=== PATIENT | male | born 1995 | race Caucasian/White ===

== ENCOUNTER 2023-09-29 15:05 | Emergency (ER) | payer OTHER, SELFPAY ==
[2023-09-29 15:15] VITALS: BP 110/71; PULSE 81; RESP 16; TEMP 36.1; O2SAT 97; BMI 27.1
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
== END 2023-09-29 16:06 | disposition home or self-care (01) ==
PROVIDERS: Emergency Provider Student in an Organized Health Care Education/Training Program
DX: S13.4XXA Sprain of ligaments of cervical spine, initial encounter (principal); V43.52XA Car driver injured in collision with other type car in traffic accident, initial encounter
CPT/HCPCS: 99283

== ENCOUNTER 2024-06-25 10:52 | Emergency (ER) | payer OTHER, SELFPAY ==
[2024-06-25] VITALS (11 sets, daily range): BP systolic 99–116; BP diastolic 63–71; PULSE 87–130; RESP 18; TEMP 36.8; O2SAT 96–99; BMI 27.8
--- NOTE | 2024-06-25 12:16 | ED_ITS ---
HPI - Nausea/Vomiting/Diarrhea General Time Seen by Provider: 12:15 Date Seen: 06/25/24 Chief complaint: Nausea/Vomiting Stated complaint: sent from Urgent Care Time Seen by Provider: 06/25/24 12:15 Source: patient, RN notes reviewed and old records reviewed (Reviewed excellent note from urgent care) Mode of arrival: ambulatory Limitations: no limitations History of Present Illness HPI Narrative: This 28-year-old male was referred from urgent care for IV fluids in the setting of nausea vomiting and diarrhea after eating fast food. He ate [employer] yesterday, had onset of symptoms of that shortly after. No blood in the vomit or stools. He did get Zofran ODT at urgent care and has been able to start taking some sips of fluids, nausea is improving. He had his last diarrheal episode just prior to being seen in urgent care. Denies any abdominal pain, no fevers. There is no ill contacts. His note from urgent cares reviewed. They were unable to place an IV and thus sent him here. He was tachycardic, notes only 1 urine output in the last 10-12 hours ago. He had emesis or diarrhea every 30 minutes overnight. He states he is tired. Related Data Previous Rx's ?Medication ?Instructions ?Recorded ondansetron 4 mg disintegrating 4 - 8 mg (1 - 2 x 4 mg) PO Q6H PRN 06/25/24 tablet nausea and vomiting #20 tabs Allergies Allergy/AdvReac Type Severity Reaction Status Date / Time No Known Drug Allergies Allergy Verified 06/25/24 11:22 Review of Systems Narrative: Has per HPI and note from urgent care. Exam Const: Vital Signs, click to edit/add: Vital Signs - 24 hr 06/25/24 11:17 Temperature 98.3 F Pulse Rate [Pulse Oximeter] 130 H Respiratory Rate 18 Blood Pressure [Ri ght Upper Arm] 99/63 Pulse Oximetry 97 Oxygen Delivery Me thod Room Air Pleasant 28-year-old male is alert, interactive, no apparent distress but does look pale and seems tired. Sclera clear, no icterus. Symmetrical facial function, speech normal. Lungs are clear, good air entry, no wheezing crackles. CV fast but regular, no murmur, normal S1-S2, no S3-S4. Abdomen is soft, nontender, nondistended, no organomegaly. Skin looks pale but no rash noted. Documenting provider has reviewed patient's vital signs: yes Course Course ED Course: Patient does have improvement in his symptoms but given his tachycardia, do feel it would be beneficial to give him IV hydration, check basic labs to ensure no significant change with a CBC or electrolytes. Nausea has improved with the Zofran ODT from urgent care. Will order a L of IV saline. Do not feel he needs any imaging as his exam is benign. Will reconsider if there is anything concerning with his labs. Discussed this likely represents food-borne etiology. Reevaluation(s) Time of Reevaluation #1: 13:40 Reevaluation #1: Labs reviewed, no significant electrolyte abnormalities. Will order a 2nd L of IV fluids with lactated Ringer's. Time of Reevaluation #2: 13:56 Reevaluation #2: Reviewed reassuring labs with patient. He is getting his 2 L of fluids. Feels a little nausea, will give him a dose of IV Zofran. Discussed expectations for this illness, if it is a viral gastroenteritis, symptoms may linger. If it is food-borne, is usually shorter lived. Zofran was reportedly sent from Urgent Care, will have him pick that up. Time of Reevaluation #3: 14:52 Reevaluation #3: Patient is reported to be feeling much better. Once IV fluids are complete, will discharge to home. Vital Signs Vital signs: Initial Vital Signs Temperature 98.3 F 06/25/24 11:17 Temperature Source Temporal Artery Scan 06/25/24 11:17 Pulse Rate 130 H 06/25/24 11:17 Respiratory Rate 18 06/25/24 11:17 Blood Pressure 99/63 06/25/24 11:17 Blood Pressure Mean 75 06/25/24 11:17 Blood Pressure Position Semi-Fowlers 06/25/24 11:17 Pulse Oximetry 97 06/25/24 11:17 Oxygen Delivery Method Room Air 06/25/24 11:17 Vital Signs Temperature 98.3 F 06/25/24 11:17 Pulse Rate 130 H 06/25/24 11:17 Respiratory Rate 18 06/25/24 11:17 Blood Pressure 99/63 06/25/24 11:17 Pulse Oximetry 97 06/25/24 11:17 Oxygen Delivery Method Room Air 06/25/24 11:17 Temperature 98.3 F 06/25/24 11:17 Pulse Rate 130 H 06/25/24 11:17 Respiratory Rate 18 06/25/24 11:17 Blood Pressure 99/63 06/25/24 11:17 Pulse Oximetry 97 06/25/24 11:17 Oxygen Delivery Method Room Air 06/25/24 11:17 Medications Administered Medications: Discontinued Medications Generic Name Dose Route Start Last Admin Trade Name Freq PRN Reason Stop Dose Admin Sodium Chloride 1,000 mls @ 1,000 mls/hr 06/25/24 12:19 06/25/24 13:52 0.9 % Sodium Chloride 1000 Ml IV 06/25/24 13:18 Infused .Q1H VELASQUEZ Infusion Lactated Ringer's 1,000 mls @ 1,000 mls/hr 06/25/24 13:39 06/25/24 13:51 Lactated Ringers 1000 Ml IV 06/25/24 14:38 1,000 mls/hr .Q1H ONE Administration Ondansetron HCl 4 mg 06/25/24 13:55 06/25/24 13:59 Ondansetron 2 Mg/Ml Inj IVP 06/25/24 13:56 4 mg ONCE ONE Administration MDM - Nausea/Vomiting/Diarrhea Lab Data Attestation: I reviewed the patient's lab results. Labs: Lab Results 06/25/24 Range/Units 13:09 WBC 7.86 (4.50-11.00) K/uL RBC 5.86 (4.30-5.90) m/uL Hgb 18.0 H (13.5-17.5) gm/dL Hct 51.5 (37.0-53.0) % MCV 88 (80-100) fL MCH 31 (26-34) pg MCHC 35 (32-36) gm/dL RDW Coeff of Kain 11.8 (11.5-15.5) % Plt Count 178 (140-440) K/uL Neut % (Auto) 91.4 H (42.0-72.0) % Lymph % (Auto) 2.4 L (20-44) % [place] % (Auto) 6.1 (0.0-11.0) % Eos % (Auto) 0.0 (0.0-7.0) % Baso % (Auto) 0.1 (0.0-3.0) % Neut # (Auto) 7.20 H (1.7-7.0) K/uL Lymph # (Auto) 0.20 L (0.90-2.90) K/uL [place] # (Auto) 0.50 (0.00-0.90) K/UL Eos # (Auto) 0.00 (0.00-0.50) K/uL Baso # (Auto) 0.01 (0.00-0.30) K/uL Abs Immat Gran (auto) 0.00 (0.00-0.30) K/uL Imm/Tot Granulo (auto) 0.0 % Sodium 138 (135-149) mmol/L Potassium 4.5 (3.6-5.1) mmol/L Chloride 104 (96-114) mmol/L Carbon Dioxide 23 (20-32) mmol/L Anion Gap 11 (7-15) mEq/L BUN 22 (5-24) mg/dL Creatinine 1.0 (0.5-1.5) mg/dL Estimated Creat Clear 118.56 Estimated GFR 104 ml/min Glucose 130 H (60-115) mg/dL Calcium 9.3 (8.4-10.6) mg/dL Discharge Plan Discharge Clinical Impression: Nausea, vomiting, and diarrhea Patient Disposition: Home, Self-Care Condition: Stable Instructions: Acute Nausea and Vomiting (ED), Acute Diarrhea (ED), Nutrition Tips for Relief of Diarrhea (ED) Additional Instructions: Can use Zofran as prescribed by Urgent Care, do recommend picking this up. Use the Zofran to control the nausea so that you can take frequent small sips fluids to stay hydrated. As you feel better, can increase her diet back to regular. Sometimes diarrhea will linger longer, can follow the handout for nutrition tips if this is the case. If you develop fevers, develops abdominal pain, have blood y diarrhea, do recommend re-evaluation. Activity Level: Activity as Tolerated Prescriptions: No Action sodium chloride 0.9 % Parenteral Solution 1 ea IV ONCE Qty: 1000 0RF ondansetron 4 mg tablet,disintegrating 4 - 8 mg PO Q6H PRN (Reason: nausea and vomiting) Qty: 20 0RF Follow Up/Referrals: Provider,Not a Local [Primary Care Provider] - Stand Alone Forms: Content [employer] Info Instructions
[2024-06-25] MEDS: 0.9 % SODIUM CHLORIDE 1000 ml 1,000 ML IV (12:50)
[2024-06-25 13:17] LABS: Basophils Absolute Auto 0.01 K/uL (0.00-0.30); Basophils Percent Auto 0.1 % (0.0-3.0); Hematocrit 51.5 % (37.0-53.0); Lymphocytes Percent Auto 2.4 % (20-44); Mean Corpuscular HGB Conc 35 gm/dL (32-36); Mean Corpuscular Hemoglobin 31 pg (26-34); Mean Corpuscular Volume 88 fL (80-100); Monocytes Percent Auto 6.1 % (0.0-11.0); Neutrophils Percent Auto 91.4 % (42.0-72.0); Platelet Count* 178 K/uL (140-440); RDW Coefficient of Variation % 11.8 % (11.5-15.5); Red Blood Count 5.86 m/uL (4.30-5.90); White Blood Count* 7.86 K/uL (4.50-11.00)
[2024-06-25 13:18] LABS: Slide Review Reflex No
--- OUTSIDE RECORDS SUMMARY | 2024-06-25 13:22 | XMS_ITS | Continuity of Care Document ---
Author Name [facility] Organization [facility] Care Team Providers Care Potato Bucker Name Role Phone [facility] Unavailable Unavailable Problems Combined list of problems from Department of Defense and Veterans Affairs facilities. It does not include entries that were removed or entered in error. Problem Status Onset Date Problem Type Date of Resolution Comments Source Other injury of other muscle(s) and tendon(s) at lower leg level, right leg Active 8 Condition DoD Other injury of other muscle(s) and tendon(s) at lower leg level, left leg Active 8 Condition DoD Viral conjunctivitis, unspecified Active 7 Condition DoD Back pain Active Condition NATIVE [facility] C Nicotine dependence Active Condition [facility] Tobacco user1 Active Condition Proble m added based off tobacco use documented in social history Ambulatory Pharmacy Medications Combined list of outpatient medications from Department of Defense and Veterans Affairs facilities.Medications provided include 1) outpatient medications from the last 15 months, and 2) patient-reported medications. Medication Details Route Status Patient Instructions Prescription Expires Prescription Number Last Dispense Date Ordering Provider Order Date Order Qty Source benzocaine- menthol 15 mg-3.6 mg lozenge [18EA] See Rx Instruct ions, # 18 EA, 0 total refill(s ), Hard Stop Complet ed 11/25/2021 18.0 Ambulat ory Pharmac y loratadine 10 mg tablet See Rx Instruct ions, Oral, # 30 EA, 0 total refill(s ), Hard Stop Oral (given by mouth) Complet ed 11/25/2021 30.0 Ambulat ory Pharmac y meloxicam 15 mg oral tablet meloxica m 15 mg oral tablet Start Date: 07/08/20 Status: Ordered Ordered No Facilit y Access Mucinex ER 600 mg/12 hour tablet See Rx Instruct ions, Oral, # 20 EA, 0 total refill(s ), Hard Stop Oral (given by mouth) Complet ed 11/25/2021 20.0 Ambulat ory Pharmac y Allergies, Adverse Reactions, Alerts Combined list of allergies from Department of Defense and Veterans Affairs facilities. It does not include entries that were removed or entered in error. Substance Category Reaction Severity Reaction type Status Date Reported Comments Source No Known Allergies Drug allergy (disorder) active 11/11/2017 [facility] Immunizations Combined list of available immunizations from the Department of Defense and Veterans Affairs facilities. Immunization Series Date Given Administered By Site Reaction Lot Number CVX Code Drug Street Light Lamp Cleaner Status Comments Source INFLUENZA, INJECTABLE, QUADRIVALENT, PRESERVATIVE FREE 2021 150 complet ed [facility] PNEUMOCOCCAL POLYSACCHARID E PPV23 2020 33 complet ed [place] [facility] COVID Vaccine Pfizer 2020 RICAELYNINOBL A Right Delto id [id number] PFIZER complet ed COVID Vaccine Pfizer 04/22/21 Given 0024C-N aval [facility] Pendlet on COVID-19 (PFIZER), MRNA, LNP-S, PF, 30 MCG/0.3 ML DOSE 2 2020 208 complet ed [facility] COVID-19 (PFIZER), MRNA, LNP-S, PF, 30 MCG/0.3 ML DOSE 1 2020 208 complet ed [facility] influenza virus vaccine, inactivated 2019 BECKA Left Delto id [id number] 158 WillCall, A iMapData complet ed influenza virus vaccine, inactivat ed 08/25/20 Given 0210C-N [facility] 31 [facility] influenza, injectable, quadrivalent- pf 2018 [id number] 150 Seqirus complet ed influenza , injectabl e, quadrival ent-pf 09/05/19 Given Ambulat ory Pharmac y influenza, injectable, quadrivalent- pf 2018 [id number] 150 Seqirus complet ed influenza , injectabl e, quadrival ent-pf 09/05/19 Given Ambulat ory Pharmac y Influenza, injectable, quadrivalent, preservative free 0 2018 [id number] 988 150 Seqirus (SEQ) complet ed Influenza , injectabl e, quadrival ent, preservat tariq free [facility] influenza, injectable, quadrivalent- pf 2017 UNK 150 Seqirus complet ed influenza , injectabl e, quadrival ent-pf 08/03/18 Given Ambulat ory Pharmac y influenza, injectable, quadrivalent- pf 2017 UNK 150 Seqirus complet ed influenza , injectabl e, quadrival ent-pf 08/03/18 Given Ambulat ory Pharmac y Influenza, injectable, quadrivalent, preservative free 0 2017 UNK 150 Seqirus (SEQ) comple t ed Influenza , injectabl e, quadrival ent, preservat tariq free DoD hepatitis A-hepatitis B vaccine 2017 [id number] 104 GlaxoSmithKli ne complet ed hepatitis A-hepatit is B vaccine 12/29/17 Given Ambulat ory Pharmac y hepatitis A-hepatitis B vaccine 2017 [id number] 104 GlaxoSmithKli ne complet ed hepatitis A-hepatit is B vaccine 12/29/17 Given Ambulat ory Pharmac y HEP A-HEP B 2017 104 complet ed [facility] hepatitis A and hepatitis B vaccine 3 2017 [id number] 104 [facility] (B) complet ed hepatitis A and hepatitis B vaccine DoD varicella virus vaccine 2016 [id number] Merck & Company Inc complet ed varicella virus vaccine 09/06/17 Given Ambulat ory Pharmac y varicella virus vaccine 2016 [id number] 21 [employer]ck [employer] Company Inc complet ed varicella virus vaccine 09/06/17 Given Ambulat ory Pharmac y VARICELLA [address] [facility] varicella virus vaccine 2 2016 [id number] 21 Merck (MSD) complet ed varicella virus vaccine DoD Influenza, inj, MDCK, quadrivalent- pf 2016231 171 Seqirus complet ed Influenza , inj, MDCK, quadrival ent-pf 07/20/17 Given Ambulat ory Pharmac y Influenza, inj, MDCK, quadrivalent- pf 2016231 171 Seqirus complet ed Influenza , inj, MDCK, quadrival ent-pf 07/20/17 Given Ambulat ory Pharmac y Influenza, injectable, Madin [place] Canine Kidney, preservative free, quadrivalent 0 2016231 171 Seqirus (SEQ) comple t ed Influenza , injectabl e, Madin Viktoriya Canine Kidney, preservat tariq free, quadrival ent DoD varicella virus vaccine 2016 [id number] 21 Merck & Company Inc complet ed varicella virus vaccine 07/15/17 Given Ambulat ory Pharmac y poliovirus vaccine, inactivated 2016 [id number] sanofi pasteur complet ed polioviru s vaccine, inactivat ed 07/15/17 Given Ambulat ory Pharmac y hepatitis A-hepatitis B vaccine 2016 [id number] 104 GlaxoSmithKli ne complet ed hepatitis A-hepatit is B vaccine 07/15/17 Given Ambulat ory Pharmac y varicella virus vaccine 2016 Left Arm [id number] 21 Merck & Company Inc complet ed varicella virus vaccine 07/15/17 Given Ambulat ory Pharmac y poliovirus vaccine, inactivated 2016 Right Arm [id number] 10 sanofi pasteur complet ed polioviru s vaccine, inactivat ed 07/15/17 Given Ambulat ory Pharmac y hepatitis A-hepatitis B vaccine 2016 Left Arm [id number] 104 GlaxoSmithKli ne complet ed hepatitis A-hepatit is B vaccine 07/15/17 Given Ambulat ory Pharmac y POLIO, UNSPECIFIED FORMULATION 2016 89 complet ed [facility] poliovirus vaccine, inactivated 1 2016 [place] [id number] 10 Sanofi Pasteur (PMC) complet ed polioviru s vaccine, inactivat ed DoD varicella virus vaccine 1 2016 [place] [id number] 21 Merck (MSD) complet ed varicella virus vaccine DoD hepatitis A and hepatitis B vaccine 1 2016 [place] L [id number] 104 SmithKline (SKB) complet ed hepatitis A and hepatitis B vaccine DoD MMR 2016 03 complet ed [facility] [facility] measles and rubella virus vaccine 0 2016 04 () Not Given measles and rubella virus vaccine DoD varicella virus vaccine 0 2016 21 () Not Given varicella virus vaccine DoD adenovirus vaccine, live 2016 [id number] 5 143 Teva Pharmaceutica ls complet ed adenoviru s vaccine, live 06/15/17 Given Ambulat ory Pharmac y hepatitis A-hepatitis B vaccine 2016 [id number] 104 GlaxoSmithKli ne complet ed hepatitis A-hepatit is B vaccine 06/15/17 Given Ambulat ory Pharmac y meningococcal A,C,Y,W-135 (MCV4P) 2016 [id number] 114 Novartis Pharmaceutica ls complet ed meningoco ccal A,C,Y,W-1 35 (MCV4P) 06/15/17 Given Ambulat ory Pharmac y tetanus, diphtheria, acellular pertu is 2016 [id number] 115 sanofi pasteur complet ed tetanus, diphtheri a, acellular pertussis 06/15/17 Given Ambulat ory Pharmac y pneumococcal polysaccharid e, 23 valent 2016 [id number] 33 Merck & Company Inc complet ed pneumococ marybeth polysacch aride, 23 valent 06/15/17 Given Ambulat ory Pharmac y meningococcal A,C,Y,W-135 (MCV4P) 2016 Left Arm [id number] 114 Novartis Pharmaceutica ls complet ed meningoco ccal A,C,Y,W-1 35 (MCV4P) 06/15/17 Given Ambulat ory Pharmac y adenovirus vaccine, live 2016 [id number] 5 143 Teva Pharmaceutica ls complet ed adenoviru s vaccine, live 06/15/17 Given Ambulat ory Pharmac y hepatitis A-hepatitis B vaccine 2016 Left Arm [id number] 104 [facility] hepatitis A-hepatit is B vaccine 06/15/17 Given Ambulat ory Pharmac y tuberculin purified protein derivative 2016 Left Arm [id number] 96 Unknown complet ed tuberculi n purified protein derivativ e 06/15/17 Given Ambulat ory Pharmac y pneumococcal polysaccharid e, 23 valent 2016 Right Arm [id number] 33 Merck & Company Inc complet ed pneumococ marybeth polysacch aride, 23 valent 06/15/17 Given Ambulat ory Pharmac y tetanus, diphtheria, acellular pertu is 2016 Right Arm [id number] 115 sanofi pasteur complet ed tetanus, diphtheri a, acellular pertussis 06/15/17 Given Ambulat ory Pharmac y TDAP 2016 115 complet ed [facility] [place] [facility] pneumococcal polysaccharid e vaccine, 23 valent 1 2016 ELIAS SAMANIEGO [id number] 33 Merck (MSD) complet ed pneumococ marybeth polysacch aride vaccine, 23 valent DoD tuberculin skin test; purified protein derivative solution, intradermal 1 2016 ELIAS SAMANIEGO [id number] 96 Unknown (UNK) complet ed tuberculi n skin test; purified protein derivativ e solution, intraderm al DoD hepatitis A and hepatitis B vaccine 1 2016 ELIAS SAMANIEGO [id number] [facility] XYDO (SKB) complet ed hepatitis A and hepatitis B vaccine DoD meningococcal polysaccharid e (groups A, C, Y and W-135) diphtheria toxoid conjugate vaccine (MCV4P) 1 2016 ELIAS SAMANIEGO [id number] 114 [employer]. (NOV) complet ed meningoco ccal polysacch aride (groups A, C, Y and W-135) diphtheri a toxoid conjugate vaccine (MCV4P) DoD tetanus toxoid, reduced diphtheria toxoid, and acellular pertu is vaccine, adsorbed 1 2016 ELIAS SAMANIEGO [id number] 115 Sanofi Pasteur (PMC) complet ed tetanus toxoid, reduced diphtheri a toxoid, and acellular pertussis vaccine, adsorbed DoD Adenovirus, type 4 and type 7, live, oral 1 2016 ELIAS SAMANIEGO [id number] 143 [employer] (BRR) complet ed Adenoviru s, type 4 and type 7, live, oral DoD Results Combined list of recent chemistry, hematology and other laboratory results from Department of Defense and Veterans Affairs, ranging from 15 months to all on record, depending upon the facility. Order Name Results Value Reference Range Date Interpretation Specimen Comments Source Hematolo gy Neutrophil % Auto 56.7 % 40.0 - 80.0 03/13 N [facility] Hematolo gy Lymphocyte % Auto 33.6 % 15.0 - 45.0 03/13 N [facility] Hematolo gy Monocyte % Auto 7.8 % 4.0 - 11.0 03/13 N [facility] Hematolo gy Eosinophil % Auto 1.5 % 0.0 - 6.0 03/13 N [facility] Hematolo gy Basophil % Auto 0.4 % 0.0 - 2.0 03/13 N [facility] Hematolo gy Neutro Absolute 2.1 1.4 - 6.5 03/13 N [facility] Hematolo gy Lymph Absolute 1.2 1.0 - 3.4 03/13 N [facility] Hematolo gy [place] Absolute 0.3 0.2 - 0.9 03/13 N [facility] Hematolo gy Eos Absolute 0.1 0.0 - 0.5 03/13 N [facility] Hematolo gy Baso Absolute 0.0 0.0 - 0.2 03/13 N [facility] Hematolo gy nRBC % Auto Not Performe d (03/13/21 8:18 AM) 03/13 N [facility] Hematolo gy nRBC Absolute Not Performe d (03/13/21 8:18 AM) 03/13 N [facility] Hematolo gy WBC 3.7 10^3/uL 4.5 - 11.0103 03/13 L [facility] Hematolo gy RBC 5.46 10^6/uL 4.40 - 5.87574 03/13 N [facility] Hematolo gy Hemoglobin 17.3 g/dL 13.0 - 18.0 03/13 N [facility] Hematolo gy Hematocrit 49.6 % 40.0 - 50.0 03/13 N [facility] Hematolo gy MCV 90.9 fL 80.0 - 100.0 03/13 N [facility] Hematolo gy MCH 31.7 pg 26.0 - 34.0 03/13 N [facility] Hematolo gy MCHC 34.9 g/dL 32.0 - 36.0 03/13 N [facility] Hematolo gy RDW 12.5 % 11.5 - 14.5 03/13 N [facility] Hematolo gy Platelets 203 10^3/uL 150 - [id number] 03/13 N [facility] Hematolo gy MPV 8.9 fL 6.5 - 10.0 03/13 N [facility] Chemistr y Non-HDL Cholestero l 104 mg/dL 03/13 Interpretiv e Data: ADULT PEDIATRIC DESIRABLE: <160 <120 mg/dL BORDERLINE: 160-189 120-144 mg/dL HIGH: >189 >144 mg/dL Reference: (1) Adult Treatment Panel III (ATP III) Classificat ion by the National Cholesterol Education Program (NCEP) and (2) Expert Panel on Integrated guidelines for Cardiovascu lar Health and Risk Reduction in Children and Adolescents , 2002. [facility] Chemistr y Cholestero l Total 154 mg/dL 03/13 Interpretiv e Data: ADULT PEDIATRIC DESIRABLE: <200 <170 mg/dL BORDERLINE: 200-239 170-199 mg/dL HIGH: >239 >199 mg/dL [facility] Chemistr y HDL Cholestero l 50.00 mg/dL 03/13 L [facility] Chemistr y Chol/HDL 3 mg/dL 03/13 [facility] Chemistr y LDL 88.00 mg/dL 03/13 Interpretiv e Data: 2YRS - 18YRS DESIRABLE: <110 2YRS - 18YRS BORDERLINE- HIGH: 110-129 2YRS - 18YRS HIGH: >130 ADULT DESIRABLE: 65-130 ADULT BORDERLINE- HIGH: 130-159 ADULT HIGH: >160 LDL CALCULATION INVALID IF TRIGLYCERID ES> 400 MG/DL [facility] Chemistr y LDL/HDL 2 03/13 [facility] Chemistr y Triglyceri thomas 80.00 mg/dL 03/13 N Interpretiv e Data: ADLT PEDS (0-9) (10-19) Desirable: <150 <75 <90 Borderline: 150-199 75-99 90-129 High: >199 >99 >129 [facility] Chemistr y LDL Direct 95.00 mg/dL 03/13 Interpretiv e Data: ADULT PEDIATRIC Desirable: <130 < 110 mg/dL Borderline: 130-159 110-129 mg/dL High: >159 >129 mg/dL [facility] Chemistr y VLDL 16.00 mg/dL 03/13 Interpretiv e Data: VLDL calculation invalid if Triglycerid es =/>400 mg/dL. [facility] Chemistr y HDL/Chol 0 03/13 [facility] Chemistr y Glucose Fasting 85 mg/dL 75 - 100 03/13 N [facility] Infectio us Disease HIV-1/2 AG/AB 4G CDD LC NEGATIVE 03/13 Result Comment: Performed At: [facility] [id number] [facility] [address] [place] [address] SAVANNAH MORTON PHD Ph:[phone] [facility] Infectio us Disease Source of Test.LC Gen Force Test (03/13/21 8:18 AM) 03/13 N [facility] Infectio us Disease Reason for Test? Screenin g (11/25/20 11:10 AM) 11/25 N [facility] Infectio us Disease SARS-CoV-2 PCR Negative 7 (11/25/20 11:10 AM) 11/25 N Interpretiv e Data: SARS-CoV-2 POSITIVE: The 2019 novel coronavirus (SARS-CoV-2 ) target nucleic acids are detected. The SARS-CoV-2 signal for the N2 nucleic acid target or signals for both nucleic acid targets (N2 and E) have a Ct within the valid range and endpoint above the minimum setting. SARS-CoV-2 PRESUMPTIVE POS: The 2019 novel coronavirus (SARS-CoV-2 ) nucleic acids may be present. Sample should be retested according to the Retest Procedure in Section 17.2. For samples with a repeated presumptive positive result, additional confirmator y testing may be conducted, if it is necessary to differentia te between SARS-CoV-2 and SARS-CoV-1 or other Sarbecoviru s currently unknown to infect humans, for epidemiolog ical purposes or clinical management. The SARS-CoV-2 signal for only the E nucleic acid target has a Ct within the valid range and endpoint above the minimum setting SARS-CoV-2 NEGATIVE:Th e 2019 novel coronavirus (SARS-CoV-2 ) target nucleic acids are not detected. The SARS-CoV-2 signals for two nucleic acid targets (N2 and E) do not have a Ct within the valid range and endpoint above the minimum setting +EUA comment The laboratory is certified under the Clinical Laboratory Improvement Program (CLIP) and College of [employer] s (CAP) as qualified to perform high complexity clinical laboratory testing.The se results were generated using the CDC 2019-Novel Coronavirus (2019-nCoV) Real-time RT-PCR Diagnostic Panel. This assay is intended for the in vitroqualit ative detection of the SARS-CoV-2 (COVID-19) RNA in respiratory specimens from individuals meeting SARS-CoV-2 (COVID-19) clinical and/or epidemiolog ical criteria. Identificat ion of SARS-CoV-2 (COVID-19) is considered final. Negative results do not preclude SARS-CoV-2 (COVID-19) infection and should not be used as the sole basis for treatment or other patient management decisions. The CDC 2019-Novel Coronavirus (2019-nCoV) Real-time RT-PCR Diagnostic Panel + is only for use under the Food and Drug Administrat ion's Emergency Use Authorizati on. [facility] Vital Signs Combined list of inpatient and outpatient Vital Signs from Department of Defense and Veterans Affairs, ranging from 12 months to all on record, depending upon the facility. Vital Sign Value Date Comments Source Systolic Blood Pressure 121mm[Hg] 01/08/2021 19:05:00 Ambulatory Pharmacy Diastolic Blood Pressure 77mmol 01/08/2021 19:05:00 Ambulatory Pharmacy Mean Arterial Pressure, Calc 92mm[Hg] 01/08/2021 19:05:00 Ambulatory P harmacy Peripheral Pulse Rate 70bpm 01/08/2021 19:05:00 Ambulatory Pharmacy Respiratory Rate 18br/min 01/08/2021 19:05:00 Ambulatory Pharmacy Temperature Oral 36.5Cel 01/08/2021 19:05:00 Ambulatory Pharmacy Encounters Combined list of: 1) Encounters from Department of Veterans Affairs facilities going back up to thelast 18 months. 2) Encounters from the Department of Defense facilities going back up to 280 months. Location Location Details Encounter Type Encounter Number Reason For Visit Attending Provider ADM Date DC Date Status Disposition Source [facility]) OUTPATIENT [id number] Notes Entered by: SHANE ALEJANDRE 15 Jun 2017 1220 ------- ------- ------- ------- -- ALBERTO RAMIREZ 06/15 Released w/o Limitations [facility] HC [facility] ) [facility] D Recruit [place] martinez) OUTPATIENT [id number] Notes Entered by: SHERICE SARKAR 15 Jun 2017 1445 ------- ------- ------- ------- -- TASHA WOODS 06/15 Released w/o Limitations [facility](M CRD Recruit Process ing) [facility](MCR D Recruit Processin g) OUTPATIENT [id number] T-22 VACCINE S JORDIN BELLAMY Koki 07/19 Released w/o Limitations [facility](M CRD Recruit Process ing) [facility](MCR D Recruit Sick Call) OUTPATIENT [id number] eye irritat ion ABILIO(IDC) JUAN Koki 08/26 Released w/o Limitations [facility](M CRD Recruit Sick Call) [facility](MCR D Recruit Sick Call) OUTPATIENT [id number] RIGHT EYE IRRITAT ION MARY FORTE Dez 08/26 Released w/o Limitations [facility](M CRD Recruit Sick Call) [facility](31A BC IDC FP [facility]) OUTPATIENT [id number] TEE Tian 09/07 Released w/o Limitations [facility](3 1ABC IDC [facility]) [facility](MCR D Recruit Processin g) OUTPATIENT [id number] Notes Entered by: KOLBY HATFIELD 19 Sep 2017 0934 ------- ------- ------- ------- -- MAKE UP SHOTS KOLBY HATFIELD 09/19 Released w/o Limitations [facility](M CRD Recruit Process ing) [facility](Bl dg 4-Nirmala s) OUTPATIENT [id number] tob/sex health JOSEE HUERTA 11/30 Released w/o Limitations [facility]( Bldg 4-Vivian ess) [facility] OUTPATIENT [id number] BILAT FARAZ SUH 12/08 Released w/o Limitations [facility]( Med-) [facility](31 ABC FP MHP) OUTPATIENT [id number] immuniz RAVI Subramanian 12/27 Released w/o Limitations [facility](3 1 ABC FP MHP) [facility](31 ABC FP MHP) OUTPATIENT [id number] poss sinus infecti on AKUETTEH-S AFORO, DARIO T 01/11 Released w/o Limitations [facility](3 1 ABC FP MHP) [facility](31 ABC FP MHP) OUTPATIENT [id number] RIB PAIN RODRIGO CORRAL A 01/17 Released w/o Limitations [facility](3 1 ABC FP MHP) [facility](31 ABC FP MHP) OUTPATIENT [id number] FLU SHOT AMBREEN ORTIZ 08/23 Released w/o Limitations [facility](3 1 ABC FP MHP) [facility](31 ABC FP MHP) OUTPATIENT [id number] food poisoni PHILIPP Arreguin 08/30 Released w/o Limitations [facility](3 1 ABC FP MHP) [facility](31 ABC Hearing Conservat ion) OUTPATIENT [id number] audiogr am PARAMJIT XIAO 12/06 Released w/o Limitations [facility](3 1 ABC Hearing Conserv ation) [facility](31 ABC FP MHP) OUTPATIENT [id number] SHIRLEY GRIFFITH 12/08 Released w/o Limitations [facility](3 1 ABC FP MHP) [facility](31 ABC FP MHP) OUTPATIENT [id number] poss sinus inf AKUETTEH-S AFORO, DARIO T 01/09 Released w/o Limitations [facility](3 1 ABC FP MHP) [facility](31 ABC FP MHP) OUTPATIENT [id number] 1 sinus infecti on x2 months AKUETTEH-S AFORO, ADRIO T 02/05 Released w/o Limitations [facility](3 1 ABC FP MHP) [facility](31 ABC FP MHP) OUTPATIENT [id number] 8 fell on outstre ched right hand-pa in,slig ht swellin g x 1 week AKUETTEH-S AFORO, DARIO T 04/03 Released w/o Limitations [facility](3 1 ABC FP MHP) [facility](31 ABC FP MHP) OUTPATIENT [id number] 6 ongoing bilat cabrera splints DARIO BYRD T 07/07 Released w/o Limitations [facility](3 1 ABC FP MHP) [facility](CP Comm Imms/Flu Clinic) TELE CONSULT [id number] Notes Entered by: DARIO RODRIGUES 14 Jul 2020 1502 ------- ------- ------- ------- -- Normal limited Bone Scan Result BETO SANTIZO Prince 07/14 Other Not Elsewhere Classified [facility](C P Comm Imms/Fl u Clinic) [facility](31 ABC FP MHP) OUTPATIENT [id number] 5 VIRTUAL -LIGHT DUTY CHIT DARIO BYRD 07/23 Released w/o Limitations [facility](3 1 ABC FP MHP) [facility] Outpatient Encounter [id number] 01/21 ADARSHSHAQUILLE JOHANNAMELISSA [facility] Procedures Combined list of: 1) Procedures from Department of Veterans Affairs facilities going back up to thelast 18 months, not all [place] non-surgical procedures are included; 2) All procedures from the Department of Defense facilities. Procedure Procedure Type Code Date Perfomer Comments Sourc e Patient education, not otherwise cla ified, non-physician provider, group, per se ion 12/06/19 19 PARAMJIT XIAO Threshold Audiogram (Pure Tone) Automated Threshold Audiogram (Pure Tone) Automated [id number] 12/06/19 19 PARAMJIT XIAO [facility] Influenza Split Virus Vaccine IM With Preservative Quadrivalent 0.50mL Dosage Influenza Split Virus Vaccine IM With Preservative Quadrivalent 0.50mL Dosage 30986 08/23/20 18 AMBREEN ORTIZ [facility] Pulse Oximetry Pulse Oximetry 93208 01/12/20 18 DARIO BLANDON [facility] Hepatitis A And Hepatitis B (Intramuscular Use) Adult Dosage Hepatitis A And Hepatitis B (Intramuscular Use) Adult Dosage 48354 12/28/19 18 RAVI PHELPS [facility] Immunization Administration By Injection, One Vaccine Immunization Administration By Injection, One Vaccine 38562 12/28/19 18 PHELPS CINDY DoD Phys Therapy Education Self Care Training - Per 15 Minutes Phys Therapy Education Self Care Training - Per 15 Minutes 05558 12/10/19 18 FARAZ BAIG Athletic Training Evaluation Moderate Complexity Athletic Training Evaluation Moderate Complexity 73946 12/10/19 18 FARAZ BAIG Hepatitis A And Hepatitis B (Intramuscular Use) Adult Dosage Hepatitis A And Hepatitis B (Intramuscular Use) Adult Dosage 12358 09/19/20 17 KOLBY HATFIELD Immunization Administration By Injection, One Vaccine Immunization Administration By Injection, One Vaccine 82790 09/19/20 17 KOLBY HATFIELD Hepatitis A And Hepatitis B (Intramuscular Use) Adult Dosage Hepatitis A And Hepatitis B (Intramuscular Use) Adult Dosage 56156 07/19/20 17 JORDIN BELLAMY Vaccines Viral Polio, Inactivated Vaccines Viral Polio, Inactivated 54932 07/19/20 17 JORDIN BELLAMY Physician Supervised Injection Intramuscular Antibiotic Physician Supervised Injection Intramuscular Antibiotic 77703 07/19/20 17 JORDIN BELLAMY Immunization Administration By Injection, Each Additional Vaccine Immunization Administration By Injection, Each Additional Vaccine 33712 07/19/20 17 JORDIN BELLAMY Preventive Medicine Screening Using Standardized Depre ion A e ment Tool Preventive Medicine Screening Using Standardized Depression Assessment Tool 1220F 06/16/20 17 GEORGETTE BARNETT Physician Supervised Injection Intramuscular Antibiotic Physician Supervised Injection Intramuscular Antibiotic [id number] 06/16/20 17 GEORGETTE BARNETT Vaccines Adenovirus Type 7 Live, For Oral Use Vaccines Adenovirus Type 7 Live, For Oral Use [id number] 06/16/20 17 GEORGETTE BARNETT Physician Supervised Injection Intramuscular Physician Supervised Injection Intramuscular [id number] 06/16/20 17 GEORGETTE BARNETT [facility] Venipuncture Venipuncture 50872 06/16/20 17 GEORGETTE BARNETT [facility] Collection Of Capillary Blood Specimen Collection Of Capillary Blood Specimen [id number] 06/16/20 17 GEORGETTE BARNETT Immunization Administration By Injection, One Vaccine Immunization Administration By Injection, One Vaccine 17346 06/16/20 17 GEORGETTE BARNETT Skin Test Anergy Tuberculin Intradermal Skin Test Anergy Tuberculin Intradermal 54245 06/16/20 17 ELAYNE BARNETTOND [facility] Pneumococcal Polysaccharide Vaccine 23 Valent Intramuscular Pneumococcal Polysaccharide Vaccine 23 Valent Intramuscular 03358 06/16/20 17 [facility] Meningococcal Polysaccharide Vaccine Meningococcal Polysaccharide Vaccine 29138 06/16/20 17 [facility] Tdap Vaccine Seven Years Of Age And Above Tdap Vaccine Seven Years Of Age And Above 04178 06/16/20 17 [facility] Hepatitis A And Hepatitis B (Intramuscular Use) Adult Dosage Hepatitis A And Hepatitis B (Intramuscular Use) Adult Dosage 88103 06/16/20 17 [facility] Vaccines Adenovirus Type 4 Live, For Oral Use Vaccines Adenovirus Type 4 Live, For Oral Use 78559 06/16/20 17 [facility] Immunization Administration By Injection, Each Additional Vaccine Immunization Administration By Injection, Each Additional Vaccine 88376 06/16/20 17 [facility] Patient education, not otherwise cla ified, non-physician provider, group, per se ion 06/15/20 17 ALBERTO ALEJANDRE [facility] Audiometry Group Testing Audiometry Group Testing [id number] 06/15/20 17 ALBERTO ALEJANDRE [facility] Waiver services; not otherwise specified (NOS) DARIO BLANDON [facility] SELF-CARE/HOME MANAGMENT TRAIN (EG,ACT OF DAILY LIVING (ADL) &COMPENSAT TRAIN,MEAL PREPARATION,SAFETY PROCS,AND INSTRUCT IN USE OF ASST TECHNOLOGY DEV/ADPT EQUIP) DIR ONE-ON-ONE CONT,EA 15 MINUTES 12/09/19 [facility] WAIVER SERVICES; NOT OTHERWISE SPECIFIED (NOS) 07/23/20 [facility] ADMINISTRATION OF PATIENT-FOCUSED HEALTH RISK ASSESSMENT INSTRUMENT (EG, HEALTH HAZARD APPRAISAL) WITH SCORING AND DOCUMENTATION, PER STANDARDIZED INSTRUMENT 12/09/19 19 [facility] PATIENT EDUCATION, NOT OTHERWISE CLASSIFIED, NON-PHYSICIAN PROVIDER, GROUP, PER SESSION 12/06/19 19 [facility] INFLUENZA VIRUS VACCINE, QUADRIVALENT (IIV4), SPLIT VIRUS, 0.5 ML DOSAGE, FOR INTRAMUSCULAR USE 08/23/20 18 [facility] NONINVASIVE EAR OR PULSE OXIMETRY FOR OXYGEN SATURATION; SINGLE DETERMINATION 01/12/20 18 [facility] HEPATITIS A AND HEPATITIS B VACCINE (HEPA-HEPB), ADULT DOSAGE, FOR INTRAMUSCULAR USE 12/28/19 18 [facility] IMMUNIZATION ADMINISTRATION (INCLUDES PERCUTANEOUS, INTRADERMAL, SUBCUTANEOUS, OR INTRAMUSCULAR INJECTIONS); 1 VACCINE (SINGLE OR COMBINATION VACCINE/TOXOID) 09/19/20 17 [facility] IMMUNIZATION ADMINISTRATION (INCLUDES PERCUTANEOUS, INTRADERMAL, SUBCUTANEOUS, OR INTRAMUSCULAR INJECTIONS); EACH ADDITIONAL VACCINE (SINGLE OR COMBINATION VACCINE/TOXOID) 07/15/20 17 [facility] PATIENT SCREENED FOR DEPRESSION (BEN) 06/15/20 17 [facility] AUDIOMETRIC TESTING OF GROUPS 06/15/20 17 [facility] No data available for this section Ambulato ry Pharmacy Social History Combined list of available smoking, tobacco, and other social history from [facility] facilities. Social History Type Response Date Comment Sourc e Tobacco smoking status NHIS VA-TOBACCO NEVER USED 12/15/2021 [facility] DODD Smoking Status 5-9 cigs(between 1/4 to 1/2 pack)/day in last 30 days 01/08/2021 Ambulatory Pharmacy Male 07/11/2020 Ambulatory Pha rmacy This section is an empty social history section. [facility]D Sexual Orientation Ambula tory Pharmacy Gender identity Ambulator y Pharmacy Assessment and Plan Combined list of future care activities from [facility] of Defense and Veterans Affairs facilities (e.g., assessment and plan notes, appointments, orders, and referrals). Additional future care activities may be listed in the Plan of Care section. Result Assessment and Plan Date Source Assessment and Plan Extracted from:Title : FINAL SEPARATION PHYSICAL Author: DARIO MADDOX MD Date: 04/02/21 1.?EXAM, OCCUPATIONAL, NURSING HOME OR SEPARATION FROM UNIFORMED SERVICE, LONG The patient is a 25yo acdu usmn CM with h/o chronic lower back pain. He scheduled an appointment for a final separation physical exam. Labs and audio screening tests have been completed. I called the patient this afternoon and spoke with him. He states he is doing well and he has no concerns or new sxs since he dropped off the package. He is scheduled to begin terminal leave on 05/13/2021 and EAOS will be on 06/13/2021. All records ans lab results were reviewed and d/w the patient. Negative lab results. Administrative forms were completed for the patient to rtc this afternoon to pickle sorter his package. F/u prn. He v/u. Ordered: Initial Comp Preventive Med 18 to 39 [place] [id number] ? Dario Maddox MD, FAAFP Senior Assurance Engineer [address] [place] [address], Vito Herrera ? Extracted from:Title: Seperation Audiogram Author: RUTH SCOTT Date: 04/01/21 1.?EXAM, FORMAL OCCUPATIONAL HEALTH PROGRAM INCLUDING HEARING CONSERVATION PROGRAM, DUE TO TERMINATION OF OCCUPATIONAL WORKPLACE EXPOSURE ?Assessment: Patient?does not have an STS?in today's?audiogram.?No further testing required. Plan:? Termination Audiogram Complete. 2.?Health education given 3.?Ear nose and throat disease treatment started Extracted from:Title: ePHA Author: MAHENDRA DARLING Date: 01/13/21 1.?EXAM/ASSESSMENT, OCCUPATIONAL, NEWS CLERK PERIODIC HEALTH ASSESSMENT (PHA) Member answered YES/NO to the following questions: - During the past 12 months, have you tried to keep your family or friends from knowing how much you gambled? NO - During the past 12 months, have you become restless, irritable, or anxious when trying to stop or cut down on gambling? NO - During the past 12 months, did you have such financial trouble as a result of your gambling that you had to get help with living expenses from family, friends, or welfare? NO - Over the PAST MONTH, have you been bothered by thoughts that you would be better off or of hurting yourself in some way? NO - Over the past month, have you had thoughts or concerns that you might hurt or lose control with someone? NO PT IS FULLY MEDICALLY READY.? PT DENIES HI/SI. PT IN IS NO EMOTIONAL STRESS OR RELATIONSHIP ISSUES. PT HAS NO PAST MENTAL HEALTH ISSUES. PT HAS NO HEALTH CONCERNS OR C/O AT THIS TIME THE FOLLOWING IMR DEFICIENCES HAVE BEEN NOTED AND PT RECIEVED FOLLOWING INSTRUCTIONS ON HOW TO CORRECT:? ? AUDIO: CURRENT LABS: NONE IMMS: NONE EQUIPMENT: N/A DENTAL: CLASS 1 DEPLOYMENT LIMITING CONDITIONS: NONE ? I performed the online review of the EPHA, see comments and referrals in attached EPHA assessment. I spent 20 minutes on education and counseling of preventive measure to reduce future risk factors, giving recommendations for a healthier life style. I discussed nutrition, safe sex, responsible alcohol consumption, and mental health. ? see?attached pha. Ordered: Preventive Medicine Counseling 15 mins [id number] ? 2.?Health education given ?see above. Ordered: Preventive Medicine Counseling 15 mins [id number] ? HM1 Mahendra Darling [facility] Surface Force Independent Duty Screen Door Maker [address]? ? ? Extracted from:Title: annual audiogram Author: JUAN ALBERTO BANUELOS Date: 12/03/20 1.?EXAM, FORMAL OCCUPATIONAL HEALTH PROGRAM INCLUDING HEARING CONSERVATION PROGRAM, PERIODIC FOR CONTINUED SURVEILLANCE FOR OCCUPATIONAL WORKPLACE EXPOSURE 2.?Health education given 3.?Ear nose and throat disease treatment started Assessment: Patient?does not have an STS?in today's?audiogram.?No further testing required. Plan:? Return 1 year for annual audiogram. 06/25/2024 Ambulatory Pharmacy Functional Status Combined list of recent functional and cognitive assessments recorded at [facility] ([facility] Functional [place] Measurement (FIM) Scale: 1 = Total Assistance (Subject = 0% +), 2 = Maximal Assistance (Subject = 25% +), 3 = Moderate Assistance (Subject = 50% +), 4 = Minimal Assistance (Subject = 75% +), 5 = Supervision, 6 = Modified [place] (Device), 7 = Complete [place] (Timely, Safely). Assessment Date/Time Source Assessment Type Assessment Skill Assessment Score Assessment Details No data available for this section
--- OUTSIDE RECORDS SUMMARY | 2024-06-25 13:22 | XMS_ITS | Clinical Summary ---
Author Organization [facility] Address [place], [place] [address] Care Team Providers Care Title Abstractor Name Role Phone Pcp, No Primary Care Provider Unavailabl e Allergies No known active allergies Medications Medication Sig Dispensed Refills Start Date End Date Status ketoconazole 2% topical (NIZORAL) cream Apply topically to affected area(s) once daily. 1 Tube 0 11/19/2014 Active Active Problems Problem Noted Date Diagnosed Date Left shoulder glenohumarl dislocation 05/05/2011 Attention deficit disorder without mention of hy peractivity 06/15/2007 Major depressive disorder, single episode, unspe cified 06/15/2007 Allergic rhinitis, cause unspecified 06/15/2007 Immunizations Name Administration Dates Next Due DTaP 03/12/1999, 5,07/05/1994,05/05,03/02/1994 HIB PRP-T (ActHIB,Hiberix) 04/07/1995,,05/05/1994,03/02 Hepatitis A (Peds) 06/05/2010,05/25/2006 Hepatitis B (Peds) 11/07/1994,03/02/1994, 994 Inactivated Polio Vaccine 03/12/1999,,05/05/1994,03/02 Influenza A (H1N1), Inactiva osito (Age >=3 Years) 09/15/2001 Influenza, IIV3 (Age >=3 years) 07/20/2006,09/06 MMR 03/12/1999,1994 Meningococcal Vaccine (Menactra) 06/05/2010 Tdap 02/18/2017,05/25/2006 Varicella Vaccine 05/25/2006,01/09/1997 Family History Medical History Relation Name Comments Alcohol/Drug Father Psychiatric illness Maternal Aunt depress ion Psychiatric illness Maternal Grandfather anxiety and depression-not treated Other Mother multiple sclero sis Psychiatric illness Mother anxiety and depression-Paxil and Buspar Relation Name Status Comments Father Maternal Aunt Maternal Grandfather Mother Social History Tobacco Use Types Packs/Day Years Used Date Smoking Tobacco: Never Smokeless Tobacco: Never Tobacco Cessation:Counseling Given: Yes Comments:No exposure Alcohol Use Standard Drinks/Week Comments Yes 0 (1 standard drink = 0.6 oz pur e alcohol) minimal Sex and Gender Information Value Date Recorded Sex Assigned at Not on file Gender Identity Not on file Sexual Orientation Not on file Obstetrics History Last Filed Vital Signs Vital Sign Reading Time Taken Comments Blood Pressure 105/64 02/18/2017 8:51 AM CDT Pulse 62 02/18/2017 8:51 AM CDT Temperature 36.4 ??C (97.5 ??F) 02/18/2017 8:51 AM CD T Respiratory Rate - - Oxygen Saturation 97% 02/18/2017 8:51 AM CDT Inhaled Oxygen Concentration - - Weight 88.4 kg (194 lb 12.8 oz) 02/18/2017 8:51 AM CDT Height 180.7 cm (5' 11.16) 02/18/2017 8:51 AM C DT Body Mass Index 27.05 02/18/2017 8:51 AM CDT Plan of Treatment Health Maintenance Due Date Last Done Comments HIV for age 15-65 2008 Hepatitis C screening for ag e 18-79 12/31/2011 BMI (ht and wt on same day) for age 18+ 02/18/2018 02/18/2017 Depression screening for age 12+ 02/18/2018 02/18/2017 COVID-19 vaccine series ( season) 2024 Influenza for age 9-49 06/10/2024 6, 09/06/2005, 09/15/2001 Tetanus booster 02/18/2027 02/18/2017, 05/25/2006 Tdap Completed 02/18/2017, 05/25/2006 Pneumococcal series for age 6-64 Aged Out No longer eligible b ased on patient's age to complete this topic Care Teams Title Abstractor Relationship Specialty Start Date End Date Pcp, No . PCP - General 03/02/21
[2024-06-25 13:31] LABS: Chloride* 104 mmol/L (96-114); Potassium* 4.5 mmol/L (3.6-5.1); Sodium* 138 mmol/L (135-149)
[2024-06-25 13:34] LABS: Anion Gap 11 mEq/L (7-15); Blood Urea Nitrogen* 22 mg/dL (5-24); Carbon Dioxide* 23 mmol/L (20-32); Est. Creatinine Clearance* 118.56; Estimated Glomerular Filt Rate 104 ml/min; Glucose* 130 mg/dL (60-115)
[2024-06-25 13:35] LABS: Calcium* 9.3 mg/dL (8.4-10.6)
[2024-06-25] MEDS: LACTATED RINGERS 1000 ML 1,000 ML IV (13:51)
[2024-06-25] MEDS: ONDANSETRON 2 MG/ML inj 4 MG IVP (13:59)
== END 2024-06-25 15:15 | disposition home or self-care (01) ==
PROVIDERS: Emergency Provider Family Medicine
DX: R11.2 Nausea with vomiting, unspecified (principal); R19.7 Diarrhea, unspecified
CPT/HCPCS: 36415; 80048; 85025; 96361; 96374; 99283; 99284; J2405; J7030; J7120